=== PATIENT | female | born 1975 | race Caucasian/White ===

== ENCOUNTER 2016-05-09 15:47 | Observation (INO) | payer OTHER ==
[~2016-05-09] VITALS: Ht 157.5 cm; Wt 72.5 kg
[2016-05-09 16:20] LABS: HEMATOCRIT 36.8 % (36.0-46.0); MCH 28.7 PG (29.0-34.0); MCHC 33.7 G/DL (30.0-36.0); MCV 85.2 FL (83-99); MEAN PLAT.VOLUME 8.8 uM^3 (9.5-12.4); PLATELET COUNT 419 K/uL (156-360); RBC DIS.WIDTH-CV 12.7 % (11.8-14.6); RBC DIS.WIDTH-SD 38.5 % (39-53); RED BLOOD COUNT 4.32 M/uL (3.80-5.20); WHITE BLOOD COUNT 8.7 K/uL (4.1-10.2)
[2016-05-09 16:29] LABS: CHLORIDE 103 mEq/L (99-109); POTASSIUM 4.3 mEq/L (3.7-5.4); SODIUM 138 mEq/L (136-147)
[2016-05-09 16:31] LABS: GLUCOSE 90 mg/dL (70-99)
[2016-05-09 16:32] LABS: ANION GAP 8 MEQ/L (2-14)
[2016-05-09 16:35] LABS: GFR ESTIMATE (CALCULATED) > 59 mL/min/
[2016-05-09 16:36] LABS: UREA NITROGEN (BUN) 19 mg/dL (9-23)
[2016-05-09] MEDS ORDERED: BYSTOLIC5 MG PO (16:37)
[2016-05-09 16:41] LABS: TROP-I INTERPRETATION NEGATIVE; TROPONIN-I < 0.01 ng/mL (0.0-0.30)
[2016-05-09 16:54] LABS: D-DIMER ELISA 0.46 mg/L FEU (< 0.57)
[2016-05-09] MEDS ORDERED: AMBIEN10 MG PO (18:08)
[2016-05-09] MEDS ORDERED: MELOXICAM15 MG PO (18:08)
[2016-05-09] MEDS ORDERED: ADDERALL20 MG PO (18:08)
[2016-05-09 20:00] VITALS: BP 168/110
[2016-05-09 20:12] LABS: TOTAL BILIRUBIN 0.5 mg/dL (0.0-1.0)
[2016-05-09 20:14] LABS: ALKALINE PHOSPHATASE 76 IU/L (3-129)
[2016-05-09 20:16] LABS: DIRECT BILIRUBIN 0.2 mg/dL (0.0-0.3)
[2016-05-09 20:17] LABS: LIPASE 21 U/L (1.0-51.0)
[2016-05-09 23:11] LABS: TROP-I INTERPRETATION NEGATIVE; TROPONIN-I < 0.01 ng/mL (0.0-0.30)
[2016-05-09 23:25] VITALS: BP 127/77
[2016-05-10] VITALS: BP 166/110
[2016-05-10 04:00] VITALS: BP 105/87
[2016-05-10 04:44] LABS: TROP-I INTERPRETATION NEGATIVE; TROPONIN-I < 0.01 ng/mL (0.0-0.30)
[2016-05-10 08:00] VITALS: BP 103/74
[2016-05-10 12:55] VITALS: BP 133/83
== END 2016-05-10 17:21 | disposition home or self-care (01) ==
LOC: EME 15:47 → EDOF 19:37 → 5WEST 23:07
PROVIDERS: Hospitalist
DX: R07.89 Other chest pain (principal); I10 Essential (primary) hypertension; E78.5 Hyperlipidemia, unspecified; R20.0 Anesthesia of skin; M25.512 Pain in left shoulder; Z82.3 Family history of stroke; Z80.3 Family history of malignant neoplasm of breast
CPT/HCPCS: 71020; 80048; 80076; 83690; 84484; 85027; 85379; 93005; 99281; 99283; G0378

== ENCOUNTER 2017-01-06 08:13 | Emergency (ER) | payer OTHER ==
[~2017-01-06] VITALS: Ht 157.5 cm; Wt 72.6 kg
[~2017-01-06 08:13] MED LIST: ADDERALL20 MG PO; AMBIEN10 MG PO; BYSTOLIC5 MG PO; MELOXICAM15 MG PO
[2017-01-06 10:15] VITALS: BP 133/97
== END 2017-01-06 10:23 | disposition home or self-care (01) ==
LOC: EME 08:13
DX: S01.01XA Laceration without foreign body of scalp, initial encounter (principal); S09.8XXA Other specified injuries of head, initial encounter; W19.XXXA Unspecified fall, initial encounter; Z23 Encounter for immunization
CPT/HCPCS: 99281; 99284